=== PATIENT | female | born 1980 | race Caucasian/White ===

== ENCOUNTER 2018-11-21 16:12 | Emergency (ER) | payer OTHER ==
[2018-11-21] MEDS: SOD CHLORIDE 0.9% 1,000 ML IV (17:10)
[2018-11-21 17:11] LABS: ADD MAN DIFF? NO
[2018-11-21] MEDS: FAMOTIDINE 20 MG INJ IV (17:11)
[2018-11-21] MEDS: DIPHENHYDRAMINE 50 MG INJ IV (17:11)
[2018-11-21] MEDS: ACETAMINOPHEN 500 MG TAB PO (17:11)
[2018-11-21] MEDS: METOCLOPRAMIDE 10 MG INJ IV (17:11)
[2018-11-21 17:13] LABS: BASOPHIL # 0.1 10^3/ul (0.0-0.1); BASOPHILS % 0.6 % (0.0-2.0); EOSINOPHILS # 0.5 10^3/ul (0.0-0.5); EOSINOPHILS % 6.3 % (0.0-7.0); HEMATOCRIT 34.4 % (37.0-47.0); HEMOGLOBIN 11.5 g/dl (12.0-16.0); LYMPHOCYTES # 3.3 10^3/ul (0.8-2.9); LYMPHOCYTES % 38.2 % (15.0-51.0); MEAN CORPUSCULAR HEMOGLOBIN 29.4 pg (29.0-33.0); MEAN CORPUSCULAR HGB CONC 33.4 g/dl (32.0-37.0); MONOCYTE # 0.6 10^3/ul (0.3-0.9); MONOCYTES % 6.6 % (0.0-11.0); NEUTROPHIL # 4.2 10^3/ul (1.6-7.5); NEUTROPHILS % 48.2 % (39.0-77.0); PLATELET COUNT 267 10^3/UL (140-415); RED BLOOD COUNT 3.91 10^6/ul (4.20-5.40); RED CELL DISTRIBUTION WIDTH 13.1 % (11.5-14.5)
[2018-11-21 17:13] LABS: WHITE BLOOD COUNT 8.6 10^3/ul (4.8-10.8)
[2018-11-21 17:26] LABS: ADD UMIC NO; UR ASCORBIC ACID NEGATIVE (NEGATIVE); UR BILIRUBIN (Dip) NEGATIVE (NEGATIVE); UR BLOOD (Dip) NEGATIVE (NEGATIVE); UR CLARITY CLEAR (CLEAR); UR COLOR STRAW (YELLOW); UR GLUCOSE (Dip) NEGATIVE (NEGATIVE); UR KETONES (Dip) NEGATIVE (NEGATIVE); UR LEUKOCYTE ESTERASE (Dip) NEGATIVE Leu/ul (NEGATIVE); UR NITRITE (Dip) NEGATIVE (NEGATIVE); UR SPECIFIC GRAVITY (Dip) 1.006 (1.003-1.030); UR TOTAL PROTEIN (Dip) NEGATIVE (NEGATIVE); UR UROBILINOGEN (Dip) NEGATIVE (NEGATIVE)
== END 2018-11-21 19:38 | disposition home or self-care (01) ==
LOC: FTE 16:12
DX: O26.891 Other specified pregnancy related conditions, first trimester (principal); O20.9 Hemorrhage in early pregnancy, unspecified; R10.13 Epigastric pain; R51 Headache; O21.9 Vomiting of pregnancy, unspecified; Z3A.10 10 weeks gestation of pregnancy
CPT/HCPCS: 36415; 76801; 81003; 84702; 85025; 86900; 86901; 96374; 96375; 99285-25

== ENCOUNTER 2018-11-25 16:49 | Emergency (ER) | payer OTHER ==
[2018-11-25 20:42] LABS: ADD UMIC NO; UR ASCORBIC ACID NEGATIVE (NEGATIVE); UR BILIRUBIN (Dip) NEGATIVE (NEGATIVE); UR BLOOD (Dip) NEGATIVE (NEGATIVE); UR CLARITY CLEAR (CLEAR); UR COLOR STRAW (YELLOW); UR GLUCOSE (Dip) NEGATIVE (NEGATIVE); UR KETONES (Dip) NEGATIVE (NEGATIVE); UR LEUKOCYTE ESTERASE (Dip) NEGATIVE Leu/ul (NEGATIVE); UR NITRITE (Dip) NEGATIVE (NEGATIVE); UR SPECIFIC GRAVITY (Dip) 1.005 (1.003-1.030); UR TOTAL PROTEIN (Dip) NEGATIVE (NEGATIVE); UR UROBILINOGEN (Dip) NEGATIVE (NEGATIVE)
== END 2018-11-25 22:33 | disposition home or self-care (01) ==
LOC: FTE 16:49
DX: O02.1 Missed abortion (principal)
CPT/HCPCS: 76801; 76817; 81003; 84702; 99284-25